=== PATIENT | female | born 1995 | race Caucasian/White ===

== ENCOUNTER 2019-12-15 11:30 | Emergency (ER) | payer OTHER ==
[~2019-12-15] VITALS: Ht 160 cm; Wt 86.2 kg
[2019-12-15 11:30] VITALS: BP 162/117
--- NOTE | 2019-12-15 11:52 | ER.PDOC ---
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 After being sprayed, she developed wheezing, SOB and palpitations. She has history of intermittent SVT since teen years (no chronic medications for this) and EMS recorded 2 episodes of SVT that resolved [employer] without treatment. Timing/Duration: 1/2 hour Quality: fast, pounding heart beat, fainting/near fainting Activities at Onset: other (pepper spray) Associated Symptoms: denies symptoms Prior symptoms/Treatment: Similar symptoms previous Allergies: Coded Allergies: Penicillins (Verified Allergy, Unknown, UNK, 12/15/19) morphine (Verified Allergy, Unknown, UNK, 12/15/19) Past Medical History Medical History: asthma, other (SVT, intermittent, no chronic/routine medications for this) Family History Significant Family History: no pertinent family hx Social History Smoking: non-smoker Alcohol Use: none Drug Use: none Constitutional: no symptoms reported EENTM: no symptoms reported Respiratory: shortness of breath (with pepper spray) Cardiovascular: palpitations Gastrointestinal: no symptoms reported Genitourinary: no symptoms reported Musculoskeletal: no symptoms reported Skin: no symptoms reported Psychiatric/Neurological: paresthesia (tingling hands), other (near syncope) Endocrine: no symptoms reported All Other Systems: Reviewed and Negative Physical Exam General Appearance: No Apparent Distress, WD/WN HEENT: PERRL/EOMI, Normal ENT Inspection Neck: Non-Tender, Full Range of Motion, Supple Respiratory: lungs clear (no wheezing or stridor), normal breath sounds, no respiratory distress, no accessory muscle use Cardiovascular: Regular Rate, Rhythm, No Gallop, No Murmur Gastrointestinal: Normal Bowel Sounds, Non Tender Extremities: No Pedal Edema, No Calf Tenderness Neurologic/Psychiatric: Alert, Normal Mood/Affect, Oriented x 3 Skin: Normal Color, Warm/Dry Results/Orders Results/Orders Orders - MELISSA GALLO DO Ekg-Routine (12/15/19 11:46) Progress Progress Patient observed for 1 hour without recurrent episodes of SVT. EKG/XRAY/CT/US EKG Comments: NSR, VR 79, no SVT, no acute STT changes ER DEPART Departure Time of Disposition: 12:33 Disposition: 01 HOME, SELF-CARE Impression: Primary Impression: Inhalation of noxious fumes Additional Impression: H/O paroxysmal supraventricular tachycardia Condition: Stable Patient Instructions: Supraventricular Tachycardia Additional Instructions: Take steroids as prescribed until all gone. Use your albuterol inhaler as needed for any wheezing. Return to ER if you experience any difficulty breathing or swallowing, or for any emergent concerns. Duration or Time Spent with Pa: 20 min Problem Qualifiers Primary Impression: Inhalation of noxious fumes Encounter type: initial encounter Injury intent: accidental or unintentional Qualified Codes: T59.91XA - Toxic effect of unspecified gases, fumes and vapors, accidental (unintentional), initial encounter MELISSA GALLO DO Dec 15, 2019 11:51
--- NOTE | 2019-12-17 02:21 | PCM.EKG ---
[facility] Test Date: 2019-12-15 Test Time: 11:54:28 Pat Name: LAY GUSMAN Department: Room: Gender: F [employer]: : 1995 Requested By: MELISSA NICOLE Order Number: [id number] Reading MD: Lisa Nicole Measurements Intervals [place] Rate: 79 P: 55 IL: 150 QRS: 45 QRSD: 87 T: 36 QT: 367 QTc: 421 Interpretive Statements Sinus rhythm No previous ECG available for comparison Electronically Signed On 12-18-2019 7:01:16 [employer] by Lisa Nicole Please click the below link to view image of tracing.
== END 2019-12-15 12:45 | disposition home or self-care (01) ==
LOC: EDBD 11:30 → ER 11:30
DX: T59.91XA Toxic effect of unspecified gases, fumes and vapors, accidental (unintentional), initial encounter (principal); R06.02 Shortness of breath; R00.2 Palpitations; R55 Syncope and collapse; J45.909 Unspecified asthma, uncomplicated; Z88.0 Allergy status to penicillin; Z88.5 Allergy status to narcotic agent; Z86.79 Personal history of other diseases of the circulatory system; Y92.89 Other specified places as the place of occurrence of the external cause
CPT/HCPCS: 93005; 99283